=== PATIENT | male | born 1940 | race Caucasian/White ===

== ENCOUNTER 2022-10-23 07:30 | Emergency (ER) | payer MEDICARE ==
[~2022-10-23] VITALS: Ht 180.3 cm; Wt 98.0 kg
[2022-10-23] MEDS ORDERED: HYDROCODON-ACE1 EA10 PO (08:27)
[2022-10-23] MEDS ORDERED: WELLBUTRIN SR150 MG PO (08:28)
[2022-10-23] MEDS ORDERED: LIPITOR40 MG PO (08:28)
[2022-10-23] MEDS ORDERED: GLUCOTROL XL10 MG PO (08:28)
[2022-10-23] MEDS ORDERED: LEVOTHYROXINE112 MC1 PO (08:29)
[2022-10-23] MEDS ORDERED: GLUMETZA500 MG PO (08:29)
[2022-10-23] MEDS ORDERED: OXYBUTYNIN CHLOR5 M1 PO (08:29)
[2022-10-23] MEDS ORDERED: ZESTRIL20 MG PO (08:29)
[2022-10-23] MEDS ORDERED: PANTOPRAZOLE SO40 M2 PO (08:30)
--- OUTSIDE RECORDS SUMMARY | 2022-10-23 09:01 | XMS ---
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 Haris has no Care Guidelines for this patient. Diana VISIT COUNT (12 MO.) 1 SANIYA Jackson TOTAL 1 NOTE: Visits indicate total known visits. ED/C VISIT TRACKING (12 MO.) 10/23/2022 07:31 SANIYA Griffin [place] TYPE: Emergency COMPLAINT: - FALL, HEAD R ARM INJURY INPATIENT VISIT TRACKING (12 MO.) No inpatient visits to display in this time frame [email or web address]
[2022-10-23 09:49] VITALS: BP 139/70
== END 2022-10-23 09:45 | disposition short-term general hospital (02) ==
LOC: ED 07:30
DX: S02.0XXA Fracture of vault of skull, initial encounter for closed fracture (principal); S06.5X0A Traumatic subdural hemorrhage without loss of consciousness, initial encounter; W17.89XA Other fall from one level to another, initial encounter; Z79.890 Hormone replacement therapy; Z79.899 Other long term (current) drug therapy
CPT/HCPCS: 36415; 70450; 71045; 80053; 85025; 99285-25; C9803; G0480; U0002